=== PATIENT | female | born 1960 | race Caucasian/White ===

== ENCOUNTER 2020-12-31 20:07 | Emergency (ER) | payer OTHER ==
[2020-12-31 20:13] VITALS: RESP 18; TEMP 97.4
[2020-12-31] MEDS ORDERED: MORPHINE SULFATE 4 MG/ML SYRINGE IM STA (20:34)
[2020-12-31] MEDS ORDERED: ORPHENADRINE 30 MG/ML 2 ML VIAL IM STA (20:34)
--- NOTE | 2020-12-31 20:40 | ED ---
General Adult HPI - General Chief complaint: Neck Pain/Injury Stated complaint: Arm numbness,Back pain Source: patient, family, RN notes reviewed Mode of arrival: ambulatory Limitations: no limitations - History of Present Illness Initial comments: 60-year-old white female presents to the emergency room with complaints of 2 weeks ago being at work and feeling weakness and bilateral legs with an inability to keep standing. Patient states that she went to the ground and had to wait a few minutes before she had the strength to stand back up. Patient states that she went to urgent care and they told her that they didn't note positive but it would likely happen again to her. Patient denies any trauma. She has no medical history she denies any surgeries in the past. She does take an aspirin on a daily basis, not prescribed, states she heard it is good for her heart. She is a pack and a half a day smoker. She says currently the pain is mostly in her neck and goes up into the back of her head when she lays down. She denies any chest pain , shortness of breath, does not use IV drugs. -: week(s) (2) Location: neck Radiation: extremity (Right shoulder) Severity scale (1-10): 6 Quality: other Consistency: intermittent (Shooting) Improves with: immobilization Worsens with: movement (Laying her head back, walking) Treatments Prior to Arrival: none - Related Data Previous Rx's Medication Instructions Recorded predniSONE 50 mg PO DAILY #5 tab 12/31/20 Allergies Allergy/AdvReac Type Severity Reaction Status Date / Time Penicillins Allergy Unknown Verified 12/31/20 20:11 Childhood Review of Systems ROS Statement: Those systems with pertinent positive or pertinent negative responses have been documented in the HPI. ROS Other: All systems not noted in ROS Statement are negative. Past Medical History Additional Past Medical History / Comment(s): back pain History of Any Multi-Drug Resistant Organisms: None Reported Smoking Status: Current some day smoker Past Alcohol Use History: None Reported Past Drug Use History: None Reported General Exam Limitations: no limitations General appearance: alert, in no apparent distress Head exam: Present: atraumatic, normocephalic, normal inspection Eye exam: Present: normal appearance, PERRL, EOMI. Absent: scleral icterus, conjunctival injection, periorbital swelling ENT exam: Present: normal exam, mucous membranes moist Neck exam: Present: normal inspection, full ROM. Absent: tenderness, meningismus, lymphadenopathy, thyromegaly Respiratory exam: Present: normal lung sounds bilaterally. Absent: respiratory distress, wheezes, rales, rhonchi, stridor, chest wall tenderness, accessory muscle use, decreased breath sounds Cardiovascular Exam: Present: tachycardia GI/Abdominal exam: Present: soft, normal bowel sounds. Absent: distended, tenderness, guarding, rebound, rigid Extremities exam: Present: normal inspection, full ROM, normal capillary refill. Absent: tenderness, pedal edema, joint swelling, calf tenderness Back exam: Present: normal inspection, full ROM, paraspinal tenderness (Cervical). Absent: tenderness, CVA tenderness (R), CVA tenderness (L), muscle spasm, vertebral tenderness, rash noted Neurological exam: Present: alert, oriented X3, CN II-XII intact Expanded Patient oriented to: Present: person, place, time Speech: Present: fluid speech Cranial nerves: EOM's Intact: Normal, Gag Reflex: Normal, Tongue Deviation: Normal, Facial Sensation: Normal, Facial Palsy with Forehead Movement: Normal, Facial Palsy without Forehead Movement: Normal Cerebellar function: Finger to Nose: Normal, Heel to Handley: Normal, Romberg: Normal Upper motor neuron: Merlin Neglect: Normal, Pronator Drift: Normal Sensory exam: Upper Extremity Light Touch: Normal, Upper Extremity Temperature: Normal, Lower Extremity Light Touch: Normal, Lower Extremity Temperature: Normal Motor strength exam: RUE: 5, LUE: 5, RLE: 5, LLE: 5 Eye Response: (4) open spontaneously Motor Response: (6) obeys commands Verbal Response: (5) oriented [place] Total: 15 Psychiatric exam: Present: normal affect, normal mood, anxious Skin exam: Present: warm, dry, intact, normal color. Absent: rash, cyanosis, diaphoretic, erythema, petechiae, pallor, mottled Course Vital Signs 12/31/20 12/31/20 20:09 21:01 Temperature 97.4 F L Pulse Rate 102 H 67 Respiratory 18 18 Rate Blood Pressure 152/89 119/76 O2 Sat by Pulse 100 98 Oximetry Medical Decision Making - Medical Decision Making Repeat heart rate was 67, blood pressure 119/76 after pain meds given. Patient up and walking to bathroom. States did get some relief from the morphine and Norflex. X-ray shows disc space narrowing at C5-C6 and C6-C7 with some minimal anterior subluxation of C4 of 2 mm. Spondylitic changes in the lower cervical spine and noted but no fractures. Patient will be prescribed Tylenol 3's to help her with significant pain in addition to a 5 day course of prednisone. She will be given referral to neurology Dr. Reynoso for follow-up. Patient will be directed to return to the emergency room with incontinence of bowel or bladder, numbness or increased pain or fever. Case discussed with Dr. Helm who is agreeable to this plan of care. Disposition Clinical Impression: Spondyloarthritis Disposition: HOME SELF-CARE Condition: Fair Instructions (If sedation given, give patient instructions): Neck Pain (ED) Additional Instructions: Take the medication as prescribed and follow-up with neurology as referred. Do not take Motrin while taking the prednisone. Use Tylenol threes as needed for worsening pain. Return to the emergency room if fever, incontinence of bowel or bladder, or increasing pain. Prescriptions: predniSONE 50 mg PO DAILY #5 tab Is patient prescribed a controlled substance at d/c from ED?: No Referrals: None,Stated [Primary Care Provider] - 1-2 days Time of Disposition: 22:23
--- NOTE | 2020-12-31 22:07 | XR ---
EXAMINATION TYPE: XR cervical spine comp DATE OF EXAM: 12/31/2020 COMPARISON: NONE HISTORY: Neck pain TECHNIQUE: 7 views FINDINGS: There is some straightening of the vertebra. There is disc space narrowing at C5-6 and C6-7 . There is minimal anterior subluxation of C4 in relation to C5 of 2 mm. There are no cervical ribs. The atlantoaxial facet joint appears intact. The neuroforamina are fairly well-maintained. IMPRESSION: Spondylotic changes in the lower cervical spine. No fracture.
[2020-12-31] MEDS ORDERED: HYDROmorphone 1 MG/ML 1 ML SYRINGE IM STA (22:23)
[2020-12-31] MEDS ORDERED: ACET/COD 300 MG/30 MG STARTER PACK 6 TAB BTL PO STA (22:23)
[2020-12-31 23:09] VITALS: BP 131/77; PULSE 71
== END 2020-12-31 23:09 | disposition home or self-care (01) ==
LOC: EC 20:07
DX: M45.2 Ankylosing spondylitis of cervical region (principal); F17.200 Nicotine dependence, unspecified, uncomplicated; Z88.0 Allergy status to penicillin
CPT/HCPCS: 99283; 96372; 72050; J2270; J2360; J1170